=== PATIENT | female | born 1950 | race Caucasian/White ===

== ENCOUNTER 2023-07-03 08:23 | Outpatient (CLI) | payer BC | END 2023-07-03 08:24 | disposition home or self-care (01) | LOC: CSHMRI 08:23 | PROVIDERS: ATTEND Neurological Surgery | DX: M50.30 Other cervical disc degeneration, unspecified cervical region (principal); Z98.890 Other specified postprocedural states; M47.812 Spondylosis without myelopathy or radiculopathy, cervical region; M48.02 Spinal stenosis, cervical region | CPT/HCPCS: 72050; 72141 ==